=== PATIENT | male | born 1945 | race Caucasian/White ===

== ENCOUNTER 2019-01-16 19:48 | Emergency (ER) | payer BC ==
[~2019-01-16] VITALS: Ht 165.1 cm; Wt 81.6 kg
[~2019-01-16 19:48] MED LIST: HYDROCHLOROTHIAZIDE; LEVOTHYROXINE; PAXIL; [UNRECOGNIZED DRUG - OTHER]
[2019-01-16] MEDS ORDERED: LIDOCAINE HCL 1% 20 ML VIAL IJ ONE (21:00)
[2019-01-16] MEDS ORDERED: TDAP DIPH,PERTUSS,TET VAC/PF 0.5 ML DISP.SYRIN IM ONE ×2 (21:00→21:43)
--- NOTE | 2019-01-16 21:02 | NUR ---
Xray at bedside.
[2019-01-16 22:06] VITALS: BP 105/68
--- NOTE | 2019-01-16 22:06 | NUR ---
Patient discharged to home in stable conditon. Written and verbal after care instructions given. Patient verbalizes understanding of instructions. Pt ambulated out of ER with steady gait, no acute signs of distress, VSS, all belongings taken.
== END 2019-01-16 22:06 | disposition home or self-care (01) ==
LOC: ER 19:50
DX: S81.012A Laceration without foreign body, left knee, initial encounter (principal); Z79.899 Other long term (current) drug therapy; W01.198A Fall on same level from slipping, tripping and stumbling with subsequent striking against other object, initial encounter; Y93.89 Activity, other specified; Y92.89 Other specified places as the place of occurrence of the external cause; Y99.8 Other external cause status
CPT/HCPCS: 12002; 73564; 90471; 90715; 99283; J3490 ×2; A4217; A4663

== ENCOUNTER 2019-01-19 12:51 | Emergency (ER) | payer BC ==
[~2019-01-19] VITALS: Ht 165.1 cm; Wt 81.6 kg
--- NOTE | 2019-01-19 13:12 | NUR ---
Dr Gomez at the bedside for MSE.
--- NOTE | 2019-01-19 13:16 | NUR ---
Suture site cleaned w/ saline and dressing applied per Md order.
[2019-01-19 13:17] VITALS: BP 115/68
--- NOTE | 2019-01-19 13:17 | NUR ---
Patient discharged to home in stable conditon. Written and verbal after care instructions given. Patient verbalizes understanding of instructions.
== END 2019-01-19 13:18 | disposition home or self-care (01) ==
LOC: ER 12:53
DX: S81.012D Laceration without foreign body, left knee, subsequent encounter (principal); Z79.899 Other long term (current) drug therapy; X58.XXXD Exposure to other specified factors, subsequent encounter
CPT/HCPCS: A4663

== ENCOUNTER 2020-01-01 16:32 | Emergency (ER) | payer BC ==
[~2020-01-01] VITALS: Ht 165.1 cm; Wt 76.2 kg
[2020-01-01] MEDS ORDERED: RIVA10TA PO (16:52)
--- NOTE | 2020-01-01 16:53 | NUR ---
patient was seen by . Wound cleansed.
[2020-01-01] MEDS ORDERED: TDAP DIPH,PERTUSS,TET VAC/PF 0.5 ML DISP.SYRIN IM ONE ×2 (17:00→17:09)
[2020-01-01] MEDS ORDERED: LIDOCAINE 1%-EPI 1:100,000 20 ML VIAL ONE (17:01)
--- NOTE | 2020-01-01 17:17 | NUR ---
wound sutured by Dr Bansal. Patient tolerated it well. Tdap vaccine given, handout with date given.
--- NOTE | 2020-01-01 18:19 | NUR ---
dc, rx and follow up instructions including suture care and return, given and explained to patient who states he understands all instructions
== END 2020-01-01 18:23 | disposition home or self-care (01) ==
LOC: ER 16:32
DX: S01.81XA Laceration without foreign body of other part of head, initial encounter (principal); W01.10XA Fall on same level from slipping, tripping and stumbling with subsequent striking against unspecified object, initial encounter; Y93.89 Activity, other specified; Y92.89 Other specified places as the place of occurrence of the external cause; Z79.01 Long term (current) use of anticoagulants; Z96.612 Presence of left artificial shoulder joint; Z96.611 Presence of right artificial shoulder joint; Z96.643 Presence of artificial hip joint, bilateral; G31.9 Degenerative disease of nervous system, unspecified; I67.2 Cerebral atherosclerosis
CPT/HCPCS: 12013; 70450; 90471; 90715; 99284; J3490; A4217; A4663

== ENCOUNTER 2021-01-04 08:20 | Inpatient (IN) | payer BC, MEDICARE ==
[~2021-01-04] VITALS: Ht 165.1 cm; Wt 80.7 kg
[2021-01-04] VITALS (8 sets, daily range): BP systolic 108–128; BP diastolic 41–74
[~2021-01-04 08:20] MED LIST changes: +RIVA10TA PO
--- NOTE | 2021-01-04 08:20 | NUR ---
Received patient alert, awake, calm, moving all extremities, respiration:easy, oriented x4, denies any pains,+R eyelid laceration with minmal bleeding s/p ground level fall per RA 83 with hypotension, near syncope and syncopal episodes. Skin is warm and dry.
[2021-01-04] MEDS ORDERED: IV NS 1000 ML 1,000 ML IV ONE (08:45)
[2021-01-04] MEDS ORDERED: CEFTRIAXONE 1 G in IV DEXTROSE 5% 50 ML IV ONE (08:45)
[2021-01-04] MEDS ORDERED: PROP80CA51 PO (08:50)
[2021-01-04] MEDS ORDERED: TRAZ-182 PO (08:50)
[2021-01-04] MEDS ORDERED: TAMS-3 PO (08:50)
[2021-01-04] MEDS ORDERED: PARO25TA16 PO (08:50)
[2021-01-04] MEDS ORDERED: AMPH15TA2 PO (08:50)
[2021-01-04] MEDS ORDERED: HYDR25TA4 PO (08:50)
[2021-01-04] MEDS ORDERED: LEVO125T8 PO (08:50)
[2021-01-04 09:15] LABS: HEMATOCRIT 46.4 % (36.7-47.1); MEAN CORPUSCULAR HEMOGLOBIN 34.5 uug (23.8-33.4); MEAN CORPUSCULAR VOLUME 100.6 fL (73.0-96.2); PLATELET COUNT (AUTO) 221 K/uL (152-348)
[2021-01-04] MEDS ORDERED: CEFTRIAXONE /D5W 50ML IVPB **ER PYXIS IV ONE (09:19)
[2021-01-04 09:22] LABS: CARBON DIOXIDE 27 mmol/L (21-32); CHLORIDE 101 mmol/L (98-107); CREATININE 1.9 mg/dL (0.6-1.3); GLUCOSE 102 mg/dL (74-106); UREA NITROGEN, BLOOD 44 mg/dL (7-18)
[2021-01-04 09:26] LABS: ETHANOL < 3 MG/DL (0-0)
[2021-01-04 09:28] LABS: ALANINE AMINOTRANSFERASE 36 U/L (16-63); ALKALINE PHOSPHATASE 76 U/L (50-136); ASPARTATE AMINOTRANSFERASE 40 U/L (15-37); BILIRUBIN,DIRECT 0.2 mg/dL (0.0-0.2); BILIRUBIN,TOTAL 0.9 mg/dL (0.2-1.0); TOTAL PROTEIN, SERUM 7.2 g/dL (6.4-8.2)
[2021-01-04 09:37] LABS: THYROID STIMULATING HORMONE 0.615 mIU/mL (0.358-3.740)
[2021-01-04] MEDS ORDERED: ASPIRIN 325 MG TABLET ONE (09:59)
[2021-01-04] MEDS ORDERED: ASPIRIN 325 MG TABLET PO ONE (10:00)
[2021-01-04] MEDS ORDERED: IV NORMAL SALINE 500 ML BAG IV ONE (10:15)
--- NOTE | 2021-01-04 10:29 | NUR ---
Dr [email or web address].
--- NOTE | 2021-01-04 10:40 | NUR ---
Patient is resting comfortably on gurney with eyes closed. PATIENT IS PAIN FREE AT THIS TIME, pending assigned LEIGH bed & nurse. Nursing wax room supervisor notified.
[2021-01-04] MEDS ORDERED: levoFLOXacin 500 MG/D5W 100ML PIGGYBACK IV ONE (12:30)
[2021-01-04] MEDS ORDERED: ACETAMINOPHEN 325 MG TABLET PO PRN (12:45)
[2021-01-04] MEDS ORDERED: IV NS 1000 ML 1,000 ML IV PRN (12:45)
[2021-01-04] MEDS ORDERED: Z GUARD REMEDY PASTE 57 GM TUBE TOP PRN (12:45)
[2021-01-04] MEDS ORDERED: MAGNESIUM HYDROXIDE 30 ML LIQUID UDC PO PRN (12:45)
[2021-01-04] MEDS ORDERED: ONDANSETRON 4 MG/2 ML VIAL IV PRN (12:45)
[2021-01-04] MEDS ORDERED: HYDROCODONE/APAP 5-325MG TABLET PO PRN (12:45)
[2021-01-04] MEDS ORDERED: levoFLOXacin 500 MG/D5W 100 ML ONE (12:49)
--- NOTE | 2021-01-04 13:50 | NUR ---
Patient ate lunch with good appetite. No acute change in condition seen, still for assigned LEIGH bed & [email or web address] moment.
--- NOTE | 2021-01-04 16:00 | NUR ---
received patient report from ER Nurse. Upon arrival patient was able to transfer from [facility] to bed. patient sat up on the side of bed with some dizziness. instructed patient not to get out of bed due to the risk of falling. patient was also refusing to get out of street close to place patient gown and equipment. With insistence patient complied with care. patient is awake alert and is on 2l NC, patient does not complain of any chest pain at this time. pictures taken of bruise in the back of head and right eye laceration.
[2021-01-04] MEDS ORDERED: CEFTRIAXONE 1 G VIAL IM SCH (17:00)
--- NOTE | 2021-01-04 17:19 | NUR ---
Gosia Vasquez called to inform me that discussed with cardiology and due to eye laceration and troponin levels are able to not have to initiate anticoagulation therapy at this time and will need to transfer to higher level of care for the eye laceration due to risk of bleed. Addendum: 01/04/21 at 1727 by KATHRYN FRIAS RN patient vitals stable at this time and will downgrade to tele.
--- NOTE | 2021-01-04 19:00 | NUR ---
Received report from ARNIE Renteria. Patient is asleep, lying in bed, arousable to name; A/Ox4; denies pain at this time; able to make needs known with staff assistance; checked IV site patent and flushed. No infiltration noted. No signs of acute distress noted. Bed at lowest position, brakes on, siderailsx3. Call light within reach. Will continue to monitor.
[2021-01-04 20:36] LABS: *BILIRUBIN,URIN 1+ (NEGATIVE); *BLOOD, URINE TRACE (NEGATIVE); *COLOR,URINE YELLOW (YELLOW); *KETONES,URINE TRACE (NEGATIVE); *UROBILINOGEN,URINE 0.2 E.U./dl (NORMAL); LEUKOCYTE ESTERASE ,URINE NEGATIVE (NEGATIVE); NITRITE, URINE NEGATIVE (NEGATIVE); UGLUCOSE NEGATIVE (NEGATIVE)
[2021-01-04 20:42] LABS: *CLARITY,URINE SLIGHTLY HAZY (CLEAR); BACTERIA,URINE FEW /HPF (NONE SEEN); RBC,URINE 0-3 /HPF (0-3); SQUAMOUS EPITHELIAL CELL,UR FEW /HPF (NONE SEEN)
[2021-01-04] MEDS: HEPARIN SODIUM,PORCINE 5,000 UNITS/ML VIAL SQ SCH (21:11)
--- NOTE | 2021-01-04 21:20 | NUR ---
Patient is asking about his home medication. Contacted Dr. Vasquez to reconcile medications.
--- NOTE | 2021-01-04 22:00 | NUR ---
Orthostatic BP checked. Denies dizziness. No signs of acute distress noted. Will continue to monitor closely.
--- NOTE | 2021-01-04 22:15 | NUR ---
Grumpy when performing orthostatic blood pressure measurement. Asking about his blood pressure adamantly. Redirected and informed plan of care.
[2021-01-05] VITALS (11 sets, daily range): BP systolic 115–143; BP diastolic 67–88
--- NOTE | 2021-01-05 | NUR ---
No significant change of condition noted. Will continue to monitor.
[2021-01-05 05:33] LABS: HEMATOCRIT 41.4 % (36.7-47.1); MEAN CORPUSCULAR VOLUME 100.1 fL (73.0-96.2); PLATELET COUNT (AUTO) 196 K/uL (152-348)
[2021-01-05 05:44] LABS: CREATININE 1.2 mg/dL (0.6-1.3); MAGNESIUM 2.2 mg/dL (1.8-2.4); PHOSPHOROUS 3.1 mg/dL (2.5-4.9); POTASSIUM 3.7 mmol/L (3.5-5.1)
[2021-01-05 06:02] LABS: THYROID STIMULATING HORMONE 0.527 mIU/mL (0.358-3.740)
--- NOTE | 2021-01-05 06:42 | NUR ---
Patient slept well during the shift, VS stable.
[2021-01-05] MEDS ORDERED: LEVOTHYROXINE SODIUM 125 MCG TABLET PO SCH (07:00)
[2021-01-05] MEDS ORDERED: PANTOPRAZOLE SODIUM 40 MG TABLET.DR PO SCH (07:00)
--- NOTE | 2021-01-05 07:00 | NUR ---
Patient is awake, due medication given, however, seems to be anxious, irritable asking about his blood pressure. Informed and advised appropriately of his condition.
--- NOTE | 2021-01-05 08:14 | NUR ---
PT for eval called for cardiac clearance to start PT due to elevated troponin.
[2021-01-05] MEDS ORDERED: TRAZODONE 50 MG TABLET PO SCH ×2 (09:00→21:00)
[2021-01-05] MEDS ORDERED: PROPRANOLOL LA 80 MG CAP.SA.24H PO SCH ×2 (09:00)
[2021-01-05] MEDS ORDERED: TAMSULOSIN HCL 0.4 MG CAP.SR.24H PO SCH ×2 (09:00→21:00)
[2021-01-05] MEDS ORDERED: PAROXETINE HCL PO SCH (09:00)
[2021-01-05] MEDS ORDERED: ASPIRIN 81 MG TAB.CHEW PO SCH (09:00)
[2021-01-05] MEDS ORDERED: METOPROLOL SUCCINATE XL 25 MG TAB.SR.24H PO SCH (09:00)
--- NOTE | 2021-01-05 09:35 | NUR ---
ok per cardiology to start PT. Critical troponin this am reported from lab 1.122.
[2021-01-05] MEDS: HEPARIN SODIUM,PORCINE 5,000 UNITS/ML VIAL SQ SCH ×2 (09:46→20:19)
[2021-01-05] MEDS ORDERED: PROP40TA7 PO (09:50)
[2021-01-05] MEDS ORDERED: PARO40TA PO (09:55)
[2021-01-05] MEDS ORDERED: CEFTRIAXONE 1 G in IV DEXTROSE 5% 50 ML IV SCH (10:00)
[2021-01-05] MEDS ORDERED: PAROXETINE HCL 20 MG TABLET PO SCH (10:00)
--- NOTE | 2021-01-05 10:25 | NUR ---
according to case management they spoke to [facility] tech and can not seen as inpatient however can be done as out patient peer to peer to get patient seen oleg. Dr. Tierney is his personal opthamalogist and called the unit prior to this discussion with case management. Will see if I can get her number to inform her of the peer to peer recommendation.
--- NOTE | 2021-01-05 10:37 | NUR ---
Dr. 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 Informed case management to contact and arrange peer to peer from one of his doctors.
--- NOTE | 2021-01-05 11:01 | NUR ---
Dr Tierney called the patient and I was able to talk to her and get her correct number. [phone]. Is her number and I gave her number to [facility]. She will call the [place]. Patient states he can pay for his transportation so he can get there today if possible.
--- NOTE | 2021-01-05 11:38 | NUR ---
spoke to Latesha and Dr. Tierney communicated that [facility] will be able to see him today. Fabienne called for demopraphic information to schedule appointment. Informed Dr. Vasquez if arrangment of transportation can be done and. An estimated out of pocket amount of 971.76 for initial consultation doesn not include anything else and patient was informed and agrees to pay out of pocket fees. He wants to be seen.
--- NOTE | 2021-01-05 12:21 | NUR ---
Dr[facility] Smith [facility] and said will not be able to repair at the clinic today but can be seen and followed up for the repair. Explained to Dr. Smith that the patient is not cleared for discharge and there is no transportation available to make for the appointment to go and come back. Dr. smith said if that is the case than it should probably be canceled however the patient should be rescheduled the following day or oleg. Informed case management to speak to the patient and explain the situation and the options we have and Pedro is also going to come and speak with him.
--- NOTE | 2021-01-05 13:30 | NUR ---
Patient spoke to briefcase sewer. Patient is very angry at this time and is banging the remote control on the bedside table and the bed.
--- NOTE | 2021-01-05 13:45 | NUR ---
patient going to room 302 report given to Lisseth GAITAN. patient was placed on the monitor and transferred via wheel chair.
--- NOTE | 2021-01-05 14:10 | NUR ---
Patient received from CCU via wheelchair. AOx4. On room air. NSR on night monitor. No signs of acute distress. Oriented patient to room and unit. IV access patent and intact. Bed alarm on for safety. Call light within reach. Wound pictures taken and placed in chart. Belongings accounted for. Will continue to monitor.
--- NOTE | 2021-01-05 18:42 | NUR ---
Patient to be transferred to [facility]. AOx4. On room air. No signs of acute distress. Vital signs WNL. Able to make needs known. Patient denies pain/ discomfort at this time. Wound pictures taken and placed in chart. Discharge instructions given to patient and patient verbalized understanding. Belongings accounted for and belongings list signed. Patient will have appointment with opthalmologist Dr. Tiffany Gilbert on 01/07/21 at 8:00am. [facility] [address] [address]. Nursing report given to ARNIE Rocha of [facility]. Will endorse to incoming shift RN while awaiting for transport.
--- NOTE | 2021-01-05 20:59 | NUR ---
Pt discharged to [facility]. Pt in stable condition. Denies SOB or chest pain. IV removed. Tele monitor removed. Picked up by ambulance via gurney and left in stable condition.
[2021-01-05] MEDS ORDERED: ATORVASTATIN 40 MG TABLET PO SCH (21:00)
[2021-01-06] MEDS ORDERED: LEVOTHYROXINE SODIUM 200 MCG TABLET PO SCH (07:00)
== END 2021-01-05 20:45 | DRG 682 ==
LOC: ER 08:20 → CCU 15:06 → TELE3 01-05 14:09
PROVIDERS: ADMIT Student in an Organized Health Care Education/Training Program; ATTEND Student in an Organized Health Care Education/Training Program
DX: N17.0 Acute kidney failure with tubular necrosis (principal); I21.A1 Myocardial infarction type 2; I95.1 Orthostatic hypotension; R55 Syncope and collapse; S01.111A Laceration without foreign body of right eyelid and periocular area, initial encounter; W01.0XXA Fall on same level from slipping, tripping and stumbling without subsequent striking against object, initial encounter; Z91.81 History of falling; Y92.019 Unspecified place in single-family (private) house as the place of occurrence of the external cause; E03.9 Hypothyroidism, unspecified; E86.0 Dehydration; F32.A Depression, unspecified; I10 Essential (primary) hypertension; Z79.01 Long term (current) use of anticoagulants; Z20.822 Contact with and (suspected) exposure to COVID-19; Z79.82 Long term (current) use of aspirin
CPT/HCPCS: 36415; 70030-TC; 70450; 71045; 72125; 83605; 83735; 84100; 84443; 85025; 85730; 87040; 87086; 93005; 93307; 97161; A4663; G0378; G0480; J0696; J1644; J1956; J7030; J7060; J8499